=== PATIENT | female | born 2000 | race Caucasian/White ===

== ENCOUNTER 2020-10-22 11:51 | Emergency (ER) | payer OTHER, SELFPAY ==
--- NOTE | 2020-10-22 12:01 | ED.URI ---
HPI - URI/Sore Throat General Chief Complaint: Upper Respiratory Infection Stated Complaint: flu swab Source: patient and RN notes reviewed Mode of arrival: ambulatory Limitations: no limitations History of Present Illness HPI Narrative: 20 year old female who presents to [facility] care with complaints of cough, nasal congestion and intermittent fevers up to 99.9F for the past 4-5 days. Patient states that she had a negative COVID swab that was resulted yesterday from [facility]. Patient states concerned since she is still having nasal congestion with drainage and cough which is productive and has low grade temperature of 99.0F. Patient stated that she has been very fatigued since the 10 of October along with her cough and nasal congestion and intermittent sore throat. Patient reports taking DayQuil and NyQuil for her symptoms. MD elicited complaint: cough, rhinorrhea, nasal congestion and other (intermittent sore throat) Onset (ago): day(s) (4-5 days) Consistency: constant Severity: mild Pain scale (0-10): 4 Description of mucous: clear and green Able to tolerate fluids by mouth: Yes Exacerbating factors: swallowing Relieving factors: nothing Associated symptoms: fever (low grade), rhinorrhea, nasal congestion, sore throat and cough Treatments prior to arrival: cold medicine Related Data Allergies Allergy/AdvReac Type Severity Reaction Status Date / Time No Known Allergies Allergy Verified 10/22/20 12:12 Review of Systems Review of Systems: Narrative: CONSTITUTIONAL: reports low grade fever, chills, or sweats. EYES: Denies visual changes, redness, or discharge. ENT: Positive rhinorrhea, congestion, sore throat, no otalgia. CARDIOVASCULAR: Denies chest pain, palpitations, or edema. RESPIRATORY:POSITIVE cough no dyspnea. GASTROINTESTINAL: Denies abdominal pain, nausea, vomiting, or diarrhea. GENITOURINARY: Denies dysuria or hematuria. SKIN: Denies rash or itching. MUSCULOSKELETAL: Denies back pain, joint pain, or myalgia. NEUROLOGIC: Denies headache, numbness, or weakness. PSYCHIATRIC: Denies anxiety or depression. All systems reviewed & are unremarkable except as noted in HPI and below PMFSH Past Medical History Medical History (Updated 10/22/20 @ 13:19 by Karina Ray NP) Strep pharyngitis Surgical History Surgical History (Updated 10/22/20 @ 13:19 by Karina Ray NP) No pertinent past surgical history Family History Family History (Updated 10/22/20 @ 13:19 by Karina Ray NP) Mother Hypertension Social History Social History (Updated 10/22/20 @ 13:18 by Karina Ray NP) Smoking status: Never smoker Alcohol intake: current Alcohol use details: social Substance use: never Living arrangements: with family Gender identity (if verbalized by the patient): Female Comments At time of signature, agree with nursing past medical, surgical, social and family history. There is no relevant family history pertinent to the presenting complaint Exam Narrative: Exam Narrative: GENERAL: Well-appearing, well-nourished, and in no acute distress. HEAD: Normocephalic, atraumatic. EYES: PERRLA and EOMI. ENT: Nares swollen and red, clear to green rhinorrhea no epistaxis. Mucous membranes moist.TM's normal with good light reflex,throat red with tonsils enlarged and red with post nasal drainage noted. NECK: Supple.no lymphadenopathy CHEST: Clear to auscultation. No respiratory distress.SAO2 100% on room air, productive cough stated with expectoration of clear to green tinged mucous, especially bad at night she states HEART: Regular rate and rhythm. No murmur heard. Normal peripheral pulses. ABDOMEN: Soft, nontender, nondistended, normal active bowel sounds. EXTREMITIES: Normal range of motion. No edema. SKIN: Warm, dry, no rash. NEURO: No focal deficits. Alert and oriented x3. Course Vital Signs Vital signs: Vital Signs Temperature 37.0 C 10/22/20 12:02 Pulse Rate 60 10/22/20 12:02
[2020-10-22 12:02] VITALS: BP 137/56; PULSE 60; RESP 20; TEMP 37; O2SAT 100
== END 2020-10-22 12:55 | disposition home or self-care (01) ==
PROVIDERS: Emergency Provider Registered Nurse; PCP Family Medicine
DX: J06.9 Acute upper respiratory infection, unspecified (principal)
CPT/HCPCS: 36416; 86308; 87081; 87804; 87880; 99203; G0463

== ENCOUNTER 2023-06-07 11:39 | Emergency (ER) | payer OTHER, SELFPAY ==
[2023-06-07 11:44] VITALS: BP 134/74; PULSE 88; RESP 18; TEMP 36.6; O2SAT 100
[2023-06-07 12:12] LABS: Appearance Urine Turbid (Clear); Bacteria Urine 4+ /hpf; Bilirubin Urine 2+ (Negative); Blood Urine Negative (Negative); Color Urine Dark Yellow (Yellow); Glucose Urine UA Negative (Negative); Ketones Urine Trace mg/dL (Negative); Leukocyte Esterase Ur Negative LEU/UL (Negative); Mucus Urine Present /lpf; Nitrate Urine Negative (Negative); Protein Urine 1+ mg/dL (Negative); RBC Urine 21-50 /hpf (0-2); Squamous Epithelial Cell Urine Many /hpf (Few); WBC Urine 21-50 /hpf
[2023-06-07 12:20] LABS: Specific Grav Ur 1.071 (1.001-1.035)
[2023-06-07 12:21] LABS: Add Urine Microscopic? YES
--- NOTE | 2023-06-07 12:24 | ED.FEMALEGU ---
HPI - Female Genitourinary General Chief complaint: Urogenital-Female Stated complaint: kidney infection Time Seen by Provider: 06/07/23 12:14 Source: patient Mode of arrival: ambulatory Limitations: no limitations History of Present Illness HPI Narrative: 22 years old white female presents with 5 days of burning urination and frequency, started on NT biotic, Macrobid 2 days ago without improvement. Patient denies any fever, chills, nausea, vomiting. Complaining of slight lower back pain. Patient denies any vaginal bleeding or discharge. Patient does not take any regular medication at home. Related Data Allergies Allergy/AdvReac Type Severity Reaction Status Date / Time No Known Allergies Allergy Verified 06/07/23 11:51 Review of Systems Review of Systems: All systems reviewed & are unremarkable except as noted in HPI and below PMFSH Past Medical History Medical History Strep pharyngitis Surgical History Surgical History No pertinent past surgical history Family History Family History Mother Hypertension Social History Social History Smoking status: Never smoker Alcohol intake: current Alcohol use details: social Substance use: never Living arrangements: with family Gender identity (if verbalized by the patient): Female Exam Narrative: General appearance: Well-developed, well-nourished Skin: Normal color Head: Normocephalic, nontraumatic Eyes: Clear conjunctiva ENT: Oropharynx normal, ears normal, nose normal Neck: Supple, nontender Chest and respiratory: Airway patent, no respiratory distress, no accessory muscle use Heart: Regular rate/rhythm Abdomen: Soft, nontender, no organomegaly, quiet bowel sounds Vascular: Normal peripheral pulses, normal capillary refill. Musculoskeletal: Normal range of motion, nontender back Neurologic: Alert and oriented ?3, [employer] is normal as tested, no gross motor deficit Course Vital Signs Vital signs: Vital Signs Temperature 36.6 C 06/07/23 11:44 Pulse Rate 88 06/07/23 11:44 Respiratory Rate 18 06/07/23 11:44 Blood Pressure 134/74 06/07/23 11:44 Pulse Oximetry 100 06/07/23 11:44 Oxygen Delivery Room Air 06/07/23 11:44 Temperature 36.6 C 06/07/23 11:44 Pulse Rate 88 06/07/23 11:44 Respiratory Rate 18 06/07/23 11:44 Blood Pressure 134/74 06/07/23 11:44 Pulse Oximetry 100 06/07/23 11:44 Oxygen Delivery Room Air 06/07/23 11:44 MDM - Female Genitourinary MDM Narrative Medical decision making narrative: Patient presents with urinary symptoms, Macrobid is not working, Urine analysis today showed infection, discharged on Bactrim twice daily for 3 days, Pyridium and ibuprofen. the pt was discharged to home.the pt,s condition upon discharge was fair,education was provided to the pt in reference to the final impression,discharge study results,treatment,prognosis and need for follow up . Differential Diagnosis Differential diagnosis: Likely urinary tract infection Lab Data Attestation: I reviewed the patient's lab results. Labs: Lab Results 06/07/23 Range/Units 11:50 Urine Color Dark yellow (Yellow) Urine Appearance Turbid H (Clear) Urine pH 5.0 (5.0-9.0) Ur Specific [place] 1.071 H (1.001-1.035) Urine Protein 1+ H (Negative) mg/dL Urine Glucose (UA) Negative (Negative) mg/dL Urine Ketones Trace H (Negative) mg/dL Ur Blood (Man) Negative (Negative) Urine Nitrate Negative (Negativ
== END 2023-06-07 13:43 | disposition home or self-care (01) ==
PROVIDERS: Physician Assistant; Emergency Provider Emergency Medicine; PCP Family Medicine
DX: N39.0 Urinary tract infection, site not specified (principal)
CPT/HCPCS: 81001; 81025; 87086; 87088; 99283

== ENCOUNTER 2023-09-02 10:47 | Emergency (ER) | payer OTHER, SELFPAY ==
[2023-09-02 10:54] VITALS: BP 126/59; PULSE 65; RESP 18; TEMP 37.2; O2SAT 100
--- NOTE | 2023-09-02 11:15 | ED.GENADULT ---
HPI - General Adult General Chief complaint: Nausea/Vomiting/Diarrhea Stated complaint: nausea Source: patient, RN notes reviewed and old records reviewed Mode of arrival: ambulatory Limitations: no limitations History of Present Illness HPI narrative: 22-year-old female patient presents to [facility] with complaint of nausea vomiting for the last week or 2. Patient states she is 6 and half weeks . Patient states tried B6 as per recommended by her OBGYN without relief. Patient states her OBGYN will not see her tests she is 8 weeks. MD complaint: Nausea vomiting Onset (ago): week(s) (1) Related Data Home Medications Medication Instructions Recorded Confirmed 09/02/23 Allergies Allergy/AdvReac Type Severity Reaction Status Date / Time No Known Allergies Allergy Verified 09/02/23 10:58 Review of Systems Constitutional: Constitutional: Reports no additional constitutional complaints, Denies body ache(s), Denies chills, Denies fatigue, Denies fever(s) and Denies headache(s) Eyes: Eyes: Reports no additional eye complaints and Denies blurry vision ENT: Reports system reviewed and no additional complaints, except as documented, Denies vertigo, Denies dizziness, Denies ear discharge, Denies otalgia, Denies facial pain, Denies headache(s), Denies nasal congestion, Denies nasal discharge, Denies sinus pain, Denies sinus pressure and Denies sore throat Cardiovascular: Cardiovascular: Reports no additional cardiovascular complaints, Denies chest pain, Denies chest pain at rest, Denies rapid heart rate and Denies dyspnea Respiratory: Respiratory: Reports no additional respiratory complaints, Denies chest congestion, Denies cough, Denies pain on inspiration, Denies pain with cough and Denies dyspnea Gastrointestinal: Gastrointestinal: Denies abdominal pain, Denies diarrhea, Reports nausea and Reports vomiting Integumentary/Breasts: Skin/Breast: Denies rash Neurologic: Reports system reviewed and no additional complaints, except as documented, Denies vertigo, Denies dizziness and Denies headache(s) Endocrine: Endocrine: Denies fatigue PMFSH Surgical History Surgical History No pertinent past surgical history Family History Family History Mother Hypertension Father Hypertension Depression Anxiety Grandparent Alcoholism Hypertension Depression Anxiety Lung cancer Breast cancer Grandparent Alcoholism Hypertension Anxiety Depression Lung cancer Social History Social History Smoking status: Current every day smoker Tobacco type: e-cigarettes/vaping Second hand tobacco smoke exposure: No Alcohol intake: current Alcohol use details: Social (1 Mix Drink/mo) Substance use: never Lack of Transportation: No Lack of Food: Never True Current Housing: I Have Housing Concerned About Future Housing: No Difficulty Paying Gas/Electric Bills: No Difficulty Paying for Meds: No Currently Unemployed: No Education: Associate Degree Difficulty w/ Childcare or Family Care: No Living arrangements: alone Occupation/Education: occupation 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 There is no relevant family history pertinent to the patient complaint. Exam Const: General: cooperative, healthy appearing, no acute distress and well nourished Nutritional Appearance: well nourished Orientation/consciousness: patient oriented x3 Limitations: no limitations
== END 2023-09-02 11:32 | disposition home or self-care (01) ==
PROVIDERS: Emergency Provider Registered Nurse
DX: O21.0 Mild hyperemesis gravidarum (principal); Z3A.01 Less than 8 weeks gestation of pregnancy; O99.331 Smoking (tobacco) complicating pregnancy, first trimester; F17.290 Nicotine dependence, other tobacco product, uncomplicated
CPT/HCPCS: 99213; G0463

== ENCOUNTER 2024-01-20 22:43 | Emergency (ER) | payer OTHER, SELFPAY ==
--- NOTE | ~2024-01-20 | CT_ITS ---
Clinical Indication: Chest pain CT Scan of the Chest with Contrast: Technique: Contiguous sections were acquired throughout the chest after intravenous administration of 100 cc of Omnipaque 350. Dose reduction technique was used on this scan by utilizing automated expos ure control and iterative reconstruction technique. The dose-length product (DLP) was 541.95 mGy-cm. Findings: There is no evidence of any significant mediastinal, hilar or axillary lymphadenopathy. There is no f illing defect in the pulmonary arterial tree to suggest pulmonary embolus. There is no evidence of ao rtic dissection or aneurysm. There is no evidence of pleural or pericardial effusion. The lungs are clear. No pulmonary nodules or infiltrates are noted. Images through the upper abdomen reveal no abnormalities. Impression: No evidence of pulmonary embolus, aortic dissection, or aortic aneurysm. Clear lungs. Reviewed, dictated and [place] [facility] Impression: No evidence of pulmonary embolus, aortic dissection, or aortic aneurysm. Clear lungs.
--- NOTE | 2024-01-20 22:44 | ECG_ITS ---
SEE SCANNED COPY FOR CONFIRMED REPORT MTDD
[2024-01-20 22:48] VITALS: BP 137/96; PULSE 97; RESP 18; TEMP 36.6; O2SAT 97
[2024-01-20 22:55] VITALS: PULSE 96
[2024-01-20 22:56] VITALS: O2SAT 100
[2024-01-20 23:17] LABS: Basophils Percent Auto 0.2 % (0.2-1.2); Eosinophils Absolute Auto 0.3 K/mm3 (0-0.3); Eosinophils Percent Auto 2.1 % (0-4.4); Hemoglobin 11.2 g/dL (12.0-15.0); Immature Granulocyte Absolute 0.12 K/mm3 (0.00-0.031); Lymphocytes Absolute Auto 2.45 K/mm3 (0.9-3.2); Lymphocytes Percent Auto 20.1 % (18.3-44.2); Mean Corpuscular HGB Conc 32.9 g/dl (32-36); Mean Corpuscular Hemoglobin 27.9 pg (26-34); Mean Corpuscular Volume 84.8 fl (80-100); Mean Platelet Volume 11.9 fl (7.4-10.4); Monocytes Absolute Auto 0.9 K/mm3 (0.1-0.6); Neutrophils Absolute Auto 8.5 K/mm3 (1.3-6.7); Neutrophils Percent Auto 69.6 % (45.5-73.1); Platelet Count Result 173 k/mm3 (150-375); Red Blood Count 4.01 M/mm3 (4.2-5.4); Red Cell Distribution Width 12.2 % (11.5-14.5); White Blood Count 12.2 K/mm3 (4.5-10.0)
--- NOTE | 2024-01-20 23:17 | PC.NURSE ---
Pt stated she took 2 81mg asa around 1900. Per MD Deysi, no dose of asa is required at this time.
[2024-01-20 23:28] LABS: Alanine Aminotransferase 16 U/L (6-35); Albumin Level 3.7 g/dL (3.5-5.1); Alkaline Phosphatase 93 U/L (38-126); Anion Gap 5 mmol/L (4-12); Aspartate Amino Transferase 18 U/L (14-36); Bilirubin,Total 0.4 mg/dL (0.2-1.3); Blood Urea Nitrogen 5 mg/dL (7-17); Calcium 9.2 mg/dL (8.4-10.2); Carbon Dioxide 23 mmol/L (22-30); Chloride 108 mmol/L (98-107); Estimated CRCL calculation 171 ml/min; Estimated Glomerular Filt Rate > 60; Glucose 91 mg/dL (65-110); Lipase 71 U/L (23-300); Potassium 3.4 mmol/L (3.4-5.0); Sodium 136 mmol/L (137-145)
[2024-01-20 23:34] LABS: Partial Thromboplastin Time 26.4 Seconds (22.3-36.8); Prothrombin Time 13.3 Seconds (11.1-14.7)
[2024-01-20 23:39] LABS: Troponin I < 0.012 ng/mL (0.000-0.034)
[2024-01-20 23:40] LABS: D Dimer 1.16 ug/mL (<0.48)
--- NOTE | 2024-01-20 23:50 | ED.GENADULT ---
HPI - General Adult General Chief complaint: Chest Pain Stated complaint: 26 weeks preg, chest pain Time Seen by Provider: 01/20/24 22:47 History of Present Illness HPI narrative: Patient 23-year-old female who presents emergency department chief complaint of chest pain. Patient reports that she is 26 weeks and started having a sharp type chest pain on the right side of her chest patient did report she had some abdominal discomfort yesterday patient states the pain is worse with movement and worse with inspiration. The patient reports no prior history of thromboembolic disease Related Data Home Medications Medication Instructions Recorded Confirmed 09/02/23 01/12/24 aspirin 81 mg chewable tablet 81 mg PO DAILY 11/17/23 01/12/24 Allergies Allergy/AdvReac Type Severity Reaction Status Date / Time No Known Allergies Allergy Verified 01/12/24 14:08 Review of Systems Review of Systems: A 10 system review of systems was completed on the patient and is negative except for what is stated in the HPI. Nursing and ancillary documentation was reviewed. [facility] Past Medical History Medical History Suppression of menses Surgical History Surgical History No pertinent past surgical history Family History Family History Mother Hypertension Father Hypertension Depression Anxiety Grandparent Alcoholism Hypertension Depression Anxiety Lung cancer Breast cancer Grandparent Alcoholism Hypertension Anxiety Depression Lung cancer Social History Social History Smoking status: Former smoker Tobacco type: e-cigarettes/vaping Second hand tobacco smoke exposure: No Alcohol intake: current Alcohol use details: Social (1 Mix Drink/mo) Substance use: never Lack of Transportation: No Lack of Food: Never True Current Housing: I Have Housing Concerned About Future Housing: No Difficulty Paying Gas/Electric Bills: No Difficulty Paying for Meds: No Currently Unemployed: No Education: Associate Degree Difficulty w/ Childcare or Family Care: No Living arrangements: alone Occupation/Education: occupation Additional occupation/education comments: [employer]) Gender identity (if verbalized by the patient): Female Sexual Orientation (if Verbalized by the Patient): Straight or Heterosexual Spiritual care concerns: No Agree to blood products: Yes Exam Narrative: GENERAL: Well-appearing, well-nourished, and in no acute distress. HEAD: Normocephalic, atraumatic. EYES: PERRLA and EOMI. ENT: Nares clear, no rhinorrhea or epistaxis. Mucous membranes moist. NECK: Supple. CHEST: Clear to auscultation. No respiratory distress. Chest wall is tender to palpation HEART: Regular rate and rhythm. No murmur heard. Normal peripheral pulses. ABDOMEN: Soft, nontender, nondistended, normal active bowel sounds. Abdomen is gravid EXTREMITIES: Normal range of motion. No edema. SKIN: Warm, dry, no rash. NEURO: No focal deficits. Alert and oriented x3. PSYCH: Normal mood and affect. Course Vital Signs Vital signs: Vital Signs Temperature 36.6 C 01/20/24 22:48 Pulse Rate 97 01/20/24 22:48 Respiratory Rate 18 01/20/24 22:48 Blood Pressure 137/96 H 01/20/24 22:48 Pulse Oximetry 97 01/20/24 22:48 Oxygen Delivery Room Air 01/20/24 22:48 Temperature 36.6 C 01/20/24 22:48 Pulse Rate 91 01/21/24 03:39 Respiratory Rate 17 01/21/24 03:39 Blood Pressure 120/74 01/21/24 03:39 Pulse Oximetry 99 01/21/24 03:39 Oxygen Delivery Room Air 01/20/24 22:56 Medical Decision Making MDM Narrative Medical decision making narrative: Differential diagnosis includes ACS, ch
[2024-01-21 01:07] VITALS: BP 117/77; PULSE 84; RESP 20; O2SAT 98
[2024-01-21 02:21] LABS: Troponin I < 0.012 ng/mL (0.000-0.034)
[2024-01-21 03:39] VITALS: BP 120/74; PULSE 91; RESP 17; O2SAT 99
--- NOTE | 2024-01-21 04:13 | PC.NURSE ---
This RN was not notified of OB needing to come to check on pt's twins upon arrival. This RN was just notified and called OB to come evaluate.
--- NOTE | 2024-01-21 05:03 | PC.NURSE ---
Evaluated patient for FHT of twins. Baby A and B both reactive. Audible movement noted on monitor. See paper charting of FHR in medical documents.
== END 2024-01-21 05:30 | disposition home or self-care (01) ==
PROVIDERS: Emergency Provider Emergency Medicine
DX: O99.891 Other specified diseases and conditions complicating pregnancy (principal); R07.89 Other chest pain; Z3A.26 26 weeks gestation of pregnancy
CPT/HCPCS: 36415; 71275; 80053; 83690; 84484; 85025; 85380; 85610; 85730; 93005; 99284; Q9967

== ENCOUNTER 2024-04-06 12:14 | Outpatient (CLI) | payer BC, SELFPAY ==
[2024-04-06 12:34] LABS: Hematocrit 34.5 % (37.0-47.0); Mean Corpuscular HGB Conc 31.9 g/dl (32-36); Mean Corpuscular Hemoglobin 25.4 pg (26-34); Mean Corpuscular Volume 79.7 fl (80-100); Mean Platelet Volume 12.3 fl (7.4-10.4); Platelet Count Result 160 k/mm3 (150-375); Red Blood Count 4.33 M/mm3 (4.2-5.4); Red Cell Distribution Width 14.7 % (11.5-14.5); White Blood Count 8.8 K/mm3 (4.5-10.0)
--- NOTE | 2024-04-06 13:52 | PM.IMHP ---
H&P: HPI History of Present Illness Date/Time: 04/06/24 13:52 23-year-old female at 38 weeks gestation presents for primary delivery. This has been complicated by twin gestation that her currently and vertex breech presentation, patient desires operative delivery. Patient also desires permanent sterilization and therefore salpingectomy will be performed as well. records are on the chart, testing has all been reassuring, and growth scans also show concordant growth throughout. Chief Complaint: Review of Systems Review of Systems: All systems reviewed & are unremarkable except as noted in HPI and below PMFSH Past Medical History Medical History Suppression of menses Surgical History Surgical History No pertinent past surgical history Family History Family History Mother Hypertension Father Hypertension Depression Anxiety Grandparent Alcoholism Hypertension Depression Anxiety Lung cancer Breast cancer Grandparent Alcoholism Hypertension Anxiety Depression Lung cancer Social History Social History Smoking status: Former smoker Tobacco type: e-cigarettes/vaping Second hand tobacco smoke exposure: No Alcohol intake: current Alcohol use details: Social (1 Mix Drink/mo) Substance use: never Lack of Transportation: No Lack of Food: Never True Current Housing: I Have Housing Concerned About Future Housing: No Difficulty Paying Gas/Electric Bills: No Difficulty Paying for Meds: No Currently Unemployed: No Education: Associate Degree Difficulty w/ Childcare or Family Care: No Living arrangements: alone Occupation/Education: occupation Additional occupation/education comments: [employer]) Gender identity (if verbalized by the patient): Female Sexual Orientation (if Verbalized by the Patient): Straight or Heterosexual Spiritual care concerns: No Agree to blood products: Yes Meds Home Medications and Allergies Home Medications Medication Instructions Recorded Confirmed Type 1 tab-cap PO DAILY 09/02/23 04/06/24 History ondansetron HCl 4 mg tablet 4 mg PO Q6H PRN nausea and 10/20/23 04/06/24 Rx vomiting #30 tabs aspirin 81 mg chewable tablet 81 mg PO DAILY 11/17/23 04/06/24 History ferrous sulfate 325 mg (65 mg 325 mg PO DAILY 02/16/24 04/06/24 History iron) tablet Allergies Allergy/AdvReac Type Severity Reaction Status Date / Time No Known Allergies Allergy Verified 04/06/24 11:25 Exam Const: General: cooperative Resp: Effort & Inspection: normal respiratory effort Auscultation: clear to auscultation bilaterally Cardio: Rate: regular rate Rhythm: regular rhythm GI: Inspection: normal to inspection Auscultation: normal bowel sounds : Bimanual exam- vagina & uterus: enlarged ( fundal height 43cm/ heart tone 140, 130) H&P: Results Labs Labs: Short CBC 04/06/24 Range/Units 12:26 WBC 8.8 (4.5-10.0) K/mm3 Hgb 11.0 L (12.0-15.0) g/dL Hct 34.5 L (37.0-47.0) % Plt Count 160 (150-375) k/mm3 Assessment and Plan Assessment and plan (1) 38 weeks gestation of : Code(s): Z3A.38 - 38 weeks gestation of Status: Acute (2) Dichorionic diamniotic twin gestation: Code(s): O30.049 - Twin , dichorionic/diamniotic, unspecified trimester Status: Acute (3) Encounter for female sterilization procedure: Code(s): Z30.2 - Encounter for sterilization Status: Acute Plan Proceed with primary section and bilateral salpingectomy
[2024-04-06 13:56] LABS: HIV 1/2 Ab P24 Ag Result Negative (Negative)
[2024-04-07 10:33] LABS: Rapid Plasma Reagin Non-Reactive (NonReactive)
== END 2024-04-06 12:15 | disposition home or self-care (01) ==
LOC: ANHLAB 12:15
PROVIDERS: Visit Provider Obstetrics & Gynecology
DX: Z01.818 Encounter for other preprocedural examination (principal)
CPT/HCPCS: 36415; 85027; 86592; 86703; 86850; 86900; 86901; G0432

== ENCOUNTER 2024-04-07 05:21 | Inpatient (IN) | payer BC, SELFPAY ==
--- NOTE | 2024-04-06 13:52 | HP_ITS ---
This report was moved to the correct visit, [id number] on 04/12/2024. Original report was signed by Chivo Sotelo MD 04/06/2024 [id number]. H&P: HPI History of Present Illness Date/Time: 04/06/24 13:52 23-year-old female at 38 weeks gestation presents for primary delivery. This has been complicated by twin gestation that her currently and vertex breech presentation, patient desires operative delivery. Patient also desires permanent sterilization and therefore salpingectomy will be performed as well. records are on the chart, testing has all been reassuring, and growth scans also show concordant growth throughout. Chief Complaint: Review of Systems Review of Systems: All systems reviewed & are unremarkable except as noted in HPI and below PMFSH Past Medical History Medical History Suppression of menses Surgical History Surgical History No pertinent past surgical history Family History Family History Mother Hypertension Father Hypertension Depression Anxiety Grandparent Alcoholism Hypertension Depression Anxiety Lung cancer Breast cancer Grandparent Alcoholism Hypertension Anxiety Depression Lung cancer Social History Social History Smoking status: Former smoker Tobacco type: e-cigarettes/vaping Second hand tobacco smoke exposure: No Alcohol intake: current Alcohol use details: Social (1 Mix Drink/mo) Substance use: never Lack of Transportation: No Lack of Food: Never True Current Housing: I Have Housing Concerned About Future Housing: No Difficulty Paying Gas/Electric Bills: No Difficulty Paying for Meds: No Currently Unemployed: No Education: Associate Degree Difficulty w/ Childcare or Family Care: No Living arrangements: alone Occupation/Education: occupation 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[employer]) Gender identity (if verbalized by the patient): Female Sexual Orientation (if Verbalized by the Patient): Straight or Heterosexual Spiritual care concerns: No Agree to blood products: Yes Meds Home Medications and Allergies Home Medications Medication Instructions Recorded Confirmed Type 1 tab-cap PO DAILY 09/02/23 04/06/24 History ondansetron HCl 4 mg tablet 4 mg PO Q6H PRN nausea and 10/20/23 04/06/24 Rx vomiting #30 tabs aspirin 81 mg chewable tablet 81 mg PO DAILY 11/17/23 04/06/24 History ferrous sulfate 325 mg (65 mg 325 mg PO DAILY 02/16/24 04/06/24 History iron) tablet Allergies Allergy/AdvReac Type Severity Reaction Status Date / Time No Known Allergies Allergy Verified 04/06/24 11:25 Exam Const: General: cooperative Resp: Effort & Inspection: normal respiratory effort Auscultation: clear to auscultation bilaterally Cardio: Rate: regular rate Rhythm: regular rhythm GI: Inspection: normal to inspection Auscultation: normal bowel sounds : Bimanual exam- vagina & uterus: enlarged ( fundal height 43cm/ heart tone 140, 130) H&P: Results Labs Labs: Short CBC 04/06/24 Range/Units 12:26 WBC 8.8 (4.5-10.0) K/mm3 Hgb 11.0 L (12.0-15.0) g/dL Hct 34.5 L (37.0-47.0) %
[2024-04-07] VITALS (51 sets, daily range): BP systolic 95–140; BP diastolic 44–84; PULSE 35–95; RESP 16; TEMP 36.1–36.9; O2SAT 80–100; BMI 39.8
[2024-04-07] MEDS: ACETAMINOPHEN 500 MG TABLET 1000 MG PO (05:47)
[2024-04-07] MEDS: LACTATED RINGERS 1,000 ML 125 ML IV CONT ×2 (05:57→06:35)
--- NOTE | 2024-04-07 06:54 | WPDANESEPPF ---
Anes - Initial Pre Proc Eval Procedure: Operation Date: 04/07/24 07:30 Proposed Procedures p Section with Bilateral Salpingectomy - Chivo Sotelo MD Date/Time: 04/07/24 06:54 Surgeon: Chivo Sotelo MD Pre Op Diagnosis: C/S Patient Data Age: 23 Gender: F Height: 1.68 m Weight: 112 kg Last Vital Signs Pulse 87 04/07/24 06:31 BP 133/83 04/07/24 06:31 Pulse Ox 98 04/07/24 06:39 O2 Del Method Room Air 04/07/24 06:08 Allergies Allergy/AdvReac Type Severity Reaction Status Date / Time No Known Allergies Allergy Verified 04/06/24 11:25 Home Medications Medication Instructions Recorded Confirmed Type 1 tab-cap PO DAILY 09/02/23 04/06/24 History ondansetron HCl 4 mg tablet 4 mg PO Q6H PRN nausea and 10/20/23 04/06/24 Rx vomiting #30 tabs aspirin 81 mg chewable tablet 81 mg PO DAILY 11/17/23 04/06/24 History ferrous sulfate 325 mg (65 mg 325 mg PO DAILY 02/16/24 04/06/24 History iron) tablet Patient hx anesthesia problems: none Family hx anesthesia problems: none Results Review: All pre-operative results and documents have been reviewed as part of the pre-operative evaluation. FORMERLY [facility], [facility] Past Medical History Medical History Suppression of menses Surgical History Surgical History No pertinent past surgical history Family History Family History Mother Hypertension Father Hypertension Depression Anxiety Grandparent Alcoholism Hypertension Depression Anxiety Lung cancer Breast cancer Grandparent Alcoholism Hypertension Anxiety Depression Lung cancer Social History Social History Smoking status: Never smoker Tobacco type: e-cigarettes/vaping Second hand tobacco smoke exposure: No Alcohol intake: current Alcohol use details: Social (1 Mix Drink/mo) Substance use: never Do You Feel Safe in your Home?: No Lack of Transportation: No Lack of Food: Never True Current Housing: I Have Housing Concerned About Future Housing: No Difficulty Paying Gas/Electric Bills: No Difficulty Paying for Meds: No Currently Unemployed: No Education: Associate Degree Difficulty w/ Childcare or Family Care: No Living arrangements: alone Occupation/Education: occupation 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[employer]) Gender identity (if verbalized by the patient): Female Sexual Orientation (if Verbalized by the Patient): Straight or Heterosexual Spiritual care concerns: No Agree to blood products: Yes Anes - Eval Final PreProcedure Day of Procedure 04/07/24 06:54 Patient weight: obese Heart: regular rate and rhythm Lungs: clear to auscultation and normal air movement Airway: Mallampati scale class II Neurological: alert and oriented Last oral intake: >/= 8 hours ASA classification: II Emergent: no Anesthetic plan: proceed Anesthesia type and monitoring: regional spinal and standard monitoring Results Review: All pre-operative results and documents have been reviewed as part of the pre-operative evaluation. Informed Consent: The patient's anesthetic plan and its attendant risks and benefits were discussed with the patient/family/POA. Questions were solicited and answers provided to the satisfaction of the patient/family/POA.
--- NOTE | 2024-04-07 07:12 | WPDHPUPDATE1 ---
History and Physical Update Update Date/Time: 04/07/24 07:12 History and Physical has been reviewed, including an updated exam of the patient. There are NO changes in the patient's condition. Risks, benefits, and alternatives have been discussed and questions answered. Patient agrees to proceed with procedure.
[2024-04-07] MEDS: ONDANSETRON INJ 4 MG/2 ML VIAL IV PUSH (07:16)
[2024-04-07] MEDS: ceFAZolin 2 GM/D5W 50 ML 2 GM/50 ML BAG IVPB (07:16)
[2024-04-07] MEDS: FAMOTIDINE 20 MG/2 ML VIAL IV PUSH (07:16)
--- NOTE | 2024-04-07 08:27 | W.PM.OBCSD ---
OB - Delivery Note Procedure Delivery date: 04/07/24 Pre-op diagnosis: Other (1. Thirty-seven week intrauterine 2. Twin gestation 3. Undesired fertility ) Post-op Diagnosis: Same Procedure Performed: Primary and Tubal Ligation Surgeon: Chivo Sotelo MD Anesthesia type: Spinal Description of Procedure/Findings: Patient prepped and draped in usual manner for this procedure. Pfannenstiel incision was made and carried through the subcutaneous tissue to the fascia. Fascia was extended bilaterally the length of the skin incision. Superiorly and inferiorly dissected away from the rectus muscles. Peritoneum was entered without difficulty bladder flap was developed. Uterus was scored low transverse manner and extended the length of the lower segment. Vertex was delivered without difficulty on baby a cord clamped cut baby was passed off the operative field. Baby B was then grasped by the feet and gently removed from the uterus with fundal pressure being applied, nuchal cord was reduced, baby was delivered and cord was clamped cut. Placenta was manually removed, uterus was exteriorized, and cleared of membranes and clots. Uterine incision was approximated 0 Monocryl in a running interlocking manner with good approximation hemostasis noted. Bilaterally the mesial salpinx were cauterized and tubes removed without difficulty. Uterus was turned to the abdomen, gutters were cleared of serosanguineous fluid and clots, tubal stumps were noted be hemostatic and the uterine incision also was hemostatic. Fascia was approximated using 0 Vicryl from the left angle midline and then from the right angle to the midline with good approximation noted. Subcutaneous tissue was approximated using 0 plain suture and kelli were then used to approximate the skin edges. Patient was sent to recovery room in stable condition. Specimen: Yes (1. Placenta 2. tubal segments) Estimated Blood Loss: 705 Drains: Yes (Edmond catheter) Packing: No Pathology: Yes Complications: No immediate complications Condition: Stable Disposition: Floor [place] Baby Gestational Age by Date: 37 Infant gender: Female (Baby a female baby B female) presentation: vertex (Baby a vertex baby B breech) Placenta delivery description: Manual Removal Cord Vessel Description: 3 Vessels
[2024-04-07] MEDS: OXYTOCIN 30 UNITS/NS 500 ML 30 UNITS/500 ML BAG 125 UNITS IV CONT (08:47)
--- NOTE | 2024-04-07 10:56 | PC.NURSE ---
Patient transferred to post room #277 via stretcher. Support person present. Oriented to unit, room, information board, rooming in, admission packet and security measures. Patient verbalizes understanding.
[2024-04-07] MEDS: KETOROLAC 15 MG/ML VIAL (*BKC) IV PUSH ×3 (11:03→23:05)
[2024-04-07] MEDS: DEXTROSE 5%/0.45% SOD CHL 1,000 ML 125 ML IV CONT (13:13)
[2024-04-07] MEDS: SIMETHICONE 80 MG TAB.CHEW PO (16:35)
[2024-04-07] MEDS: ACETAMINOPHEN 325 MG TABLET 650 MG PO ×2 (16:35→23:04)
[2024-04-07] MEDS: DOCUSATE SODIUM 100 MG CAPSULE PO (16:35)
--- NOTE | 2024-04-07 17:10 | PC.NURSE ---
1710: Patient asked for assistance because the babies are sleepy. Upon entering the room, both babies are swaddled and sleeping. Baby B was unwrapped and undressed and she began to stir and fuss. We placed baby in cradle hold on the left breast. Mother has copious amounts of breast milk she can easily express. readily latched on and was sucking vigorously with frequent swallows, sometimes after every suck. Mother denies any pain with the feeding. Encouraged parents to keep baby feeding for at least 10-15 minutes. 1730: Baby B ate for 20 minutes and we attempted to awaken Baby A. She was undressed and placed skin to skin in cradle hold on the right breast. Baby would not open her mouth or attempt to latch. Mother express many drops of milk and tried to entice baby to feed. Baby would not suck on a gloved finger. Advised mom to keep baby skin to skin for 15-20 minutes and then try again. 1745: Mother called for assistance with latch. had fussed and awakened after skin to skin. We tried again to latch baby to the right breast in cradle hold. Baby would not open her mouth wide to latch. We tried a wet wipe all over baby's chest and feet and she did fuss a little but would still not open her mouth. We expressed more drops of colostrum and she opened once or twice and suck once but did not latch. We switched to football position but infant still would not wake. After trying for 15 minutes without any effort from baby, mother was advised to express some more drops into baby's mouth and try again in two hours. Mother knows to watch for feeding cues and put baby to breast at anytime she exhibits them. Discussed this plan with Primary RN and she agrees that since baby has had good feedings so far today this will count as a feeding at this time. Mother also aware that since baby is 37 weeks we may need to move to another plan if baby doesn't wake and feed well at the next feeding time.
[2024-04-08] MEDS: HYDROcodone/acetaminophen (*CRX) 10-325 MG TABLET 1 TAB PO ×4 (01:00→17:20)
[2024-04-08] MEDS: KETOROLAC 15 MG/ML VIAL (*BKC) IV PUSH (06:38)
[2024-04-08] MEDS: ACETAMINOPHEN 325 MG TABLET 650 MG PO ×2 (06:38→23:49)
[2024-04-08 06:58] LABS: Basophils Percent Auto 0.3 % (0.2-1.2); Eosinophils Absolute Auto 0.2 K/mm3 (0-0.3); Eosinophils Percent Auto 1.5 % (0-4.4); Hematocrit 30.7 % (37.0-47.0); Hemoglobin 9.5 g/dL (12.0-15.0); Immature Granulocyte Absolute 0.08 K/mm3 (0.00-0.031); Immature Granulocyte Percent A 0.7 % (0-0.5); Lymphocytes Absolute Auto 1.87 K/mm3 (0.9-3.2); Lymphocytes Percent Auto 15.8 % (18.3-44.2); Mean Corpuscular HGB Conc 30.9 g/dl (32-36); Mean Corpuscular Hemoglobin 25.1 pg (26-34); Mean Corpuscular Volume 81.2 fl (80-100); Monocytes Absolute Auto 0.8 K/mm3 (0.1-0.6); Monocytes Percent Auto 6.4 % (2.6-8.5); Neutrophils Absolute Auto 8.9 K/mm3 (1.3-6.7); Neutrophils Percent Auto 75.3 % (45.5-73.1); Platelet Count Result 153 k/mm3 (150-375); Red Blood Count 3.78 M/mm3 (4.2-5.4); Red Cell Distribution Width 14.8 % (11.5-14.5); White Blood Count 11.9 K/mm3 (4.5-10.0)
[2024-04-08 07:40] VITALS: BP 103/51; PULSE 74; RESP 16; TEMP 38; O2SAT 98
[2024-04-08] MEDS: DOCUSATE SODIUM 100 MG CAPSULE PO ×2 (08:53→16:18)
[2024-04-08] MEDS: SIMETHICONE 80 MG TAB.CHEW PO ×3 (08:53→16:18)
[2024-04-08] MEDS: POLYSACCHARIDE IRON COMPLEX 150 MG CAPSULE PO ×2 (08:53→16:18)
[2024-04-08] MEDS: MULTIVIT/MIN/PREN/FOL AC/IRON TABLET 1 TAB PO (08:53)
--- NOTE | 2024-04-08 09:54 | PC.NURSE ---
Mother verbalizes she is able to independently latch both infants with appropriate positioning and alignment. She denies any nipple discomfort and is responsively . is currently meeting outcomes for weight, output, jaundice, blood sugar and feeding frequencies of 8-12 times in 24 hours. Mother declines any additional assistance or education at this time. Mother is encouraged to call for assistance if her doesn?t latch, pain with latching, questions or concerns. Mother voiced understanding of information shared along with the mom/baby guide for an additional resource. Reported to the Primary RN.
--- NOTE | 2024-04-08 11:22 | WPDANLDNPN2 ---
Anes-Prog Note L&D-Neuraxial Date/Time: 04/08/24 11:22 Patient feedback: Patient satisfied with post-operative pain management.
--- NOTE | 2024-04-08 11:22 | WPDANLDPN2 ---
Anes-Prog Note L&D Date/Time: 04/08/24 11:22 Neuro status: Neuro function grossly intact. Cardiovascular status: normal Respiratory status: normal Airway patency: baseline Mental status: baseline Post-Op hydration status: normal Vital Signs: Last Vital Signs Temp 38.0 C H 04/08/24 07:40 Pulse 74 04/08/24 07:40 Resp 16 04/08/24 07:40 BP 103/51 L 04/08/24 07:40 Pulse Ox 98 04/08/24 07:40 O2 Del Method Room Air 04/08/24 06:56 Pain score (VAS): 0 I/O: Intake & Output 04/07/24 04/08/24 04/08/24 23:59 07:59 15:59 Intake Total 1500 Output Total 1050 500 Balance 450 -500 Post-procedural complaints: none Patient feedback: Patient satisfied with anesthetic care.
[2024-04-08] MEDS: IBUPROFEN 600 MG TABLET PO ×2 (13:39→23:50)
--- NOTE | 2024-04-08 14:53 | PC.NURSE ---
Patient asked for assistance because the babies are sleepy. Upon entering the room, Baby B was being held by FOB and baby A was being held by mother. Baby A was unwrapped and placed on mothers chest. Mother has breast milk she can easily express. Infant readily latched on and would suck 5-6 good, strong sucks and fall asleep. Mother denies any pain with latch. Encouraged parents to stimulate and continue feeding for at least 10-15 minutes and repeat with Baby B. Mother verbalized understanding and will call RN if she is unable to continue feeds.
[2024-04-08] MEDS: LIDOCAINE 5% PATCH 1 PATCH TRANSDERM (16:18)
[2024-04-08 19:03] VITALS: BP 119/79; PULSE 87; RESP 16; TEMP 37; O2SAT 98
[2024-04-09] MEDS: IBUPROFEN 600 MG TABLET PO ×3 (07:42→19:52)
[2024-04-09] MEDS: ACETAMINOPHEN 325 MG TABLET 650 MG PO ×3 (07:43→19:52)
[2024-04-09] MEDS: POLYSACCHARIDE IRON COMPLEX 150 MG CAPSULE PO ×2 (07:44→16:07)
[2024-04-09] MEDS: SIMETHICONE 80 MG TAB.CHEW PO ×2 (07:44→16:08)
[2024-04-09] MEDS: DOCUSATE SODIUM 100 MG CAPSULE PO ×2 (07:44→16:07)
[2024-04-09 07:45] VITALS: BP 125/80; PULSE 76; RESP 18; TEMP 36.8; O2SAT 95
--- NOTE | 2024-04-09 08:37 | P.PNOB_ITS ---
OB - PN: Subj Subjective Date/time seen: 04/09/24 08:37 Doing well with diet/ambulation tolerated. Pain reasonably well controlled. VSS afebrile inc C/D/I abd soft labs noted routine pp prison tomorrow or NC bed if babies stay OB - PN: Obj Data Labs 04/08/24 04:05 OB - PN A/P Time Spent With Patient Time: Total time spent is greater than 50% in coordination of care (as documented) at patient's floor/unit and/or counseling patient:
--- NOTE | 2024-04-09 08:38 | PM.OBDSVD ---
DS: Admitting Diagnosis Discharge Date 04/10/2024 Admitting Diagnosis DS: Discharge Diagnosis Discharge Diagnosis (1) , delivered: Code(s): O80 - Encounter for full-term uncomplicated delivery Status: Acute (2) Encounter for female sterilization procedure: Code(s): Z30.2 - Encounter for sterilization Status: Acute OB - DS: Summary OB Procedures : None OB Procedures Intrapartum: and Tubal ligation OB Procedures: : None Peripartum Data Procedures: Procedures Operation Date: 04/07/24 07:30 Actual Procedure Side Surgeon p Section with Bilateral Salpingectomy Bilateral Chivo Sotelo MD Time Spent with Patient Time attestation: Total time spent providing and/or coordinating discharge services: DS: Data Data Completed and Pending Pending studies at discharge: Pending at discharge 04/07/24 08:37 Surgical [PTH] Routine Discharge Plan Discharge Discharging Clinician: Chivo Sotelo Patient Disposition: Home, Self-Care Activity: follow weight bearing status and pelvic rest Diet: as tolerated Wound Care Instructions: incision open to air Discharge Instructions: kelli out thursday, office or hospital if still here Patient Instructions: Antibiotic Form Stand Alone Forms: General Discharge Information Follow-up/Referrals: Chivo Sotelo MD [Physician] - 3 Weeks Discharge Medications: New hydrocodone-acetaminophen 5-325 mg Tablet 1 tablet PO Q3H PRN (Reason: Breakthrough Pain Rated 4-6) Qty: 30 0RF ibuprofen 600 mg Tablet 600 mg PO Q6H Qty: 30 0RF Continued 1 tab-cap PO DAILY ondansetron HCl 4 mg tablet 4 mg PO Q6H PRN (Reason: nausea and vomiting) Qty: 30 1RF ferrous sulfate 325 mg (65 mg iron) tablet 325 mg PO DAILY Discontinued aspirin 81 mg tablet,chewable 81 mg PO DAILY Date of admission: 04/07/24 05:21 Primary Care Provider: PHYSICIAN NOT ON STAFF,NONSTAFF Admitting Provider: Chivo Sotelo Attending physician on admission: Chivo Sotelo Condition: Stable
[2024-04-09] MEDS: MULTIVIT/MIN/PREN/FOL AC/IRON TABLET 1 TAB PO (09:00)
[2024-04-09] MEDS: LIDOCAINE 5% PATCH 1 PATCH TRANSDERM (16:08)
[2024-04-09] MEDS: HYDROcodone/acetaminophen (*CRX) 5-325 MG TABLET 1 TAB PO (16:15)
[2024-04-09 21:00] VITALS: BP 121/77; PULSE 83; RESP 16; TEMP 37; O2SAT 99
[2024-04-09] MEDS: HYDROcodone/acetaminophen (*CRX) 10-325 MG TABLET 1 TAB PO (21:11)
[2024-04-10] MEDS: HYDROcodone/acetaminophen (*CRX) 10-325 MG TABLET 1 TAB PO (00:19)
[2024-04-10] MEDS: ACETAMINOPHEN 325 MG TABLET 650 MG PO ×3 (01:53→13:22)
[2024-04-10] MEDS: IBUPROFEN 600 MG TABLET PO ×3 (01:53→13:22)
[2024-04-10] MEDS: POLYSACCHARIDE IRON COMPLEX 150 MG CAPSULE PO (07:37)
[2024-04-10] MEDS: DOCUSATE SODIUM 100 MG CAPSULE PO (07:37)
[2024-04-10] MEDS: SIMETHICONE 80 MG TAB.CHEW PO ×2 (07:37→13:22)
[2024-04-10] MEDS: MULTIVIT/MIN/PREN/FOL AC/IRON TABLET 1 TAB PO (07:37)
[2024-04-10 07:40] VITALS: BP 122/79; PULSE 82; RESP 18; TEMP 36.7
[2024-04-12 09:11] VITALS: BP 132/78; PULSE 78; RESP 18; TEMP 36.8; O2SAT 100
== END 2024-04-10 15:20 | disposition home or self-care (01) | DRG 785 ==
LOC: ANHLDR 05:24 → ANHOB2 10:59
PROVIDERS: Admitting Provider Obstetrics & Gynecology; Visit Provider Obstetrics & Gynecology
PROC: 10D00Z1 Extraction of Products of Conception, Low, Open Approach (ICD-10-PCS; CPT 59514; principal; 2024-04-07 07:30)
DX: O32.1XX2 Maternal care for breech presentation, fetus 2 (principal); O99.824 Streptococcus B carrier state complicating childbirth; O69.81X2 Labor and delivery complicated by cord around neck, without compression, fetus 2; O30.043 Twin pregnancy, dichorionic/diamniotic, third trimester; Z3A.38 38 weeks gestation of pregnancy; Z37.2 Twins, both liveborn; Z30.2 Encounter for sterilization; Z87.891 Personal history of nicotine dependence
CPT/HCPCS: 36415; 85025; 85055; 88302; 88307; A9270; J0690; J1885; J2274; J2405; J2590; J7120

== ENCOUNTER 2024-04-12 09:33 | Outpatient (CLI) | payer BC, SELFPAY ==
[2024-04-12 10:09] LABS: Add Urine Microscopic? YES; Appearance Urine Cloudy (Clear); Bacteria Urine 1+ /hpf; Bilirubin Urine Negative (Negative); Blood Urine 3+ (Negative); Color Urine Yellow (Yellow); Glucose Urine UA Negative (Negative); Ketones Urine Negative (Negative); Leukocyte Esterase Ur Trace LEU/UL (Negative); Nitrate Urine Negative (Negative); Non Pathogenic Casts 0-2; Protein Urine Trace mg/dL (Negative); RBC Urine 0-2 /hpf (0-2); Specific Grav Ur 1.021 (1.001-1.035); Squamous Epithelial Cell Urine Few /hpf (Few); pH Urine 6.5 (5.0-9.0)
== END 2024-04-12 09:34 | disposition home or self-care (01) ==
LOC: ANHOBOP 09:35
PROVIDERS: Visit Provider Obstetrics & Gynecology
DX: Z34.90 Encounter for supervision of normal pregnancy, unspecified, unspecified trimester (principal); Z3A.00 Weeks of gestation of pregnancy not specified
CPT/HCPCS: 81001; 87086; 87088

== ENCOUNTER 2024-06-09 19:27 | Emergency (ER) | payer BC, SELFPAY ==
--- NOTE | 2024-06-09 19:59 | ED.WOUNDLAC ---
HPI - Wound/Laceration General Chief Complaint: Wound/Laceration Stated Complaint: left thumb infection Time Seen by Provider: 06/09/24 19:59 Source: patient, RN notes reviewed and old records reviewed Mode of arrival: ambulatory Limitations: no limitations History of Present Illness HPI narrative: 23 year old female who presents to [facility] care with lesion to the left radial side of his thumb nail with redness swelling and pain and clear to yellow drainage. Patient reports that it was initially a blister and she popped it and it has progressively gotten worse. Patient reports that she has been cleansing area with soap and water and has applied Neosporin ointment and has been placing band-aide over wound. Patient is breast feeding, childbirth 2 months ago. Onset (ago): week(s) (2 weeks) Location: other (left thumb) Patient tetanus UTD: Yes Treatments prior to arrival: other (cleansing and Neosporin) Related Data Allergies Allergy/AdvReac Type Severity Reaction Status Date / Time No Known Allergies Allergy Verified 06/09/24 19:43 Review of Systems Review of Systems: CONSTITUTIONAL: Denies fever, chills, or sweats. CARDIOVASCULAR: Denies chest pain, palpitations, or edema. RESPIRATORY: Denies cough or dyspnea. GASTROINTESTINAL: Denies abdominal pain, nausea, vomiting SKIN: Reports redness and swelling to area on side of left thumb nail.Reports purulent drainage, radial side of thumb nail, tenderness to tissue, no pustule or vesicles. MUSCULOSKELETAL: Denies myalgia. NEUROLOGIC: Denies headache, numbness All systems reviewed & are unremarkable except as noted in HPI and below PMFSH Past Medical History Medical History Suppression of menses Twin delivery by Family History Family History Mother Hypertension Father Hypertension Depression Anxiety Grandparent Alcoholism Hypertension Depression Anxiety Lung cancer Breast cancer Grandparent Alcoholism Hypertension Anxiety Depression Lung cancer Social History Social History Smoking status: Never smoker Tobacco type: e-cigarettes/vaping Second hand tobacco smoke exposure: No Alcohol intake: current Alcohol use details: Social (1 Mix Drink/mo) Substance use: never Do You Feel Safe in your Home?: No Lack of Transportation: No Lack of Food: Never True Current Housing: I Have Housing Concerned About Future Housing: No Difficulty Paying Gas/Electric Bills: No Difficulty Paying for Meds: No Currently Unemployed: No Education: Associate Degree Difficulty w/ Childcare or Family Care: No Living arrangements: alone Occupation/Education: occupation 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[employer]) Gender identity (if verbalized by the patient): Female Sexual Orientation (if Verbalized by the Patient): Straight or Heterosexual Spiritual care concerns: No Agree to blood products: Yes Comments At time of signature, agree with nursing past medical, surgical, social and family history. There is no relevant family history pertinent to the presenting complaint Exam Narrative: GENERAL: Well-appearing, well-nourished, and in no acute distress. HEAD: Normocephalic, atraumatic. EYES: PERRLA and EOMI. ENT: Nares clear, no rhinorrhea or epistaxis. Mucous membranes moist. NECK: Supple.no lymphadenopathy CHEST: Clear to auscultation. No respiratory distress. HEART: Regular rate and rhythm. No murmur heard. Normal peripheral pulses. ABDOMEN: Soft, nontender, nondistended, normal active bowel sounds. EXTREMITIES: Normal range of motion. No edema. SKIN: Warm, dry. Erythema, induration, tenderness, warmth to wound at left nail radial side some purulent drainage noted with tenderness, around 0.3 diameter in size. NEURO: No focal de
[2024-06-09 20:04] VITALS: BP 135/83; PULSE 62; RESP 18; TEMP 37.4; O2SAT 100
== END 2024-06-09 20:21 | disposition home or self-care (01) ==
PROVIDERS: Emergency Provider Registered Nurse; PCP Family Medicine
DX: L03.012 Cellulitis of left finger (principal)
CPT/HCPCS: 99213; G0463